=== PATIENT | female | born 1950 | race Caucasian/White ===

== ENCOUNTER 2016-11-06 10:59 | Day surgery (SDC) | payer MEDICARE, OTHER ==
[~2016-11-06] VITALS: Ht 170.2 cm; Wt 72.6 kg
[~2016-11-06 10:59] MED LIST: ATRV10T PO; LOSA25TA2 PO; Sodium Chloride LOK Flush 10 mL Syringe IV PRN; TRIA1CAP PO; fentaNYL-PF 50 mCg/mL 2 mL Inj IVPUSH PRN
[2016-11-06 11:27] VITALS: BP 119/91; PULSE 92; RESP 16; O2SAT 94
[2016-11-06] MEDS: 0.9% Sodium Chloride 1,000 ML IV PRN ×2 (12:21→12:46)
[2016-11-06 12:59] VITALS: BP 128/73; PULSE 73; RESP 15; O2SAT 93
[2016-11-06 13:08] VITALS: BP 118/81; PULSE 80; RESP 15; O2SAT 95
[2016-11-06 13:18] VITALS: BP 111/80; PULSE 76; RESP 15; O2SAT 96
--- NOTE | 2016-11-06 13:18 | ENDO ---
[address] [address] ENDOSCOPY PROCEDURE PATIENT: CATARINA CONSTANTINO : 1950 MR#: [id number] ADMIT: 11/06/2016 JOB ID: [id number] DATE OF SERVICE: 11/06/2016 PRIMARY PROVIDER: Dr. Raudel Segura. PROCEDURE: Colonoscopy. INDICATIONS: A 66-year-old female who presents for colon cancer screening. EQUIPMENT: [id number]. SEDATION: 1. Versed 5 mg. 2. Fentanyl 100 mcg. COMPLICATIONS: None identified. BOWEL PREPARATION: Excellent. PROCEDURE INFORMATION: After the risks and benefits were explained, written and verbal informed consent was obtained. The patient was brought into the endoscopy suite and placed into the left lateral decubitus position. Sedation was achieved as above. A digital rectal examination was accomplished and no significant pathology apart from some mild internal hemorrhoids noted. The scope was introduced into the rectum and advanced under direct visualization to the level of the cecum, as identified by the appendiceal orifice and ileocecal valve. The scope was slowly withdrawn to carefully examine the mucosa for any defects or lesions. Multiple direct views were made through the dentate line for exclusion of pathology. The colon was decompressed. The scope removed from the patient who tolerated the procedure well. FINDINGS: The terminal ileum was briefly interrogated and appeared visually normal. The patient had a moderately tortuous sigmoid region with some scattered diverticula. I did not see any significant polyps, mass lesions, or inflammatory features identified throughout. ENDOSCOPIC DIAGNOSES: 1. Diverticulosis. 2. Mild internal hemorrhoids. RECOMMENDATIONS: Repeat colonoscopy in 10 years' time, sooner should symptoms warrant.
== END 2016-11-06 23:59 | disposition home or self-care (01) ==
LOC: END 10:59
PROVIDERS: ATTEND Internal Medicine Gastroenterology
DX: Z12.11 Encounter for screening for malignant neoplasm of colon (principal); K57.30 Diverticulosis of large intestine without perforation or abscess without bleeding; K64.8 Other hemorrhoids
CPT/HCPCS: 99153; G0121; G0500; J2250; J7030